=== PATIENT | female | born 1995 | race Caucasian/White ===

== ENCOUNTER 2016-08-21 04:43 | Emergency (ER) | payer MEDICAID ==
[2016-08-21 04:58] VITALS: BP 125/79
[2016-08-21] MEDS ORDERED: Ketorolac 60 MG/2 ML SDV IM ONE (05:15)
[2016-08-21] MEDS ORDERED: Acetaminophen/Codeine 300-30 MG Tab PO ONE (05:16)
--- NOTE | 2016-08-21 05:19 | EDM.PDOC ---
ED HPI GENERAL MEDICAL PROBLEM - General Chief Complaint: ENT Problem Stated Complaint: LT TOOTH PAIN Time Seen by Provider: 08/21/16 05:27 Source of Information: Reports: Patient History Limitations: Reports: No Limitations - History of Present Illness INITIAL COMMENTS - FREE TEXT/NARRATIVE: pt is having severe pain the left upper jaw. The most post tooth was very tender. She is also tender in left incisor area and she has alot of cavitiesv Onset: Gradual Duration: Day(s):, Getting Worse Location: Reports: Face Associated Symptoms: Reports: Other ( severe jaw pain) Treatments [employer]: Reports: Acetaminophen, NSAIDS Upper Left tooth Pain Score (Numeric/FACES): 0 - Related Data Allergies Allergy/AdvReac Type Severity Reaction Status Date / Time Penicillins Allergy Rash Verified 08/21/16 04:58 Home Meds: Home Meds NK [No Known Home Meds] 08/21/16 [History] Social & Family History - Tobacco Use Smoking Status *Q: Current Every Day Smoker Years of Tobacco use: 6 Packs/Tins Daily: 0.5 Second Hand Smoke Exposure: Yes - Caffeine Use Caffeine Use: Reports: Soda - Recreational Drug Use Recreational Drug Use: No ED ROS ENT - Review of Systems Review Of Systems: See Below Constitutional: Reports: No Symptoms HEENT: Reports: Dental Pain, Other ( the entire left jaw is painful) Respiratory: Reports: No Symptoms Cardiovascular: Reports: No Symptoms Endocrine: Reports: No Symptoms GI/Abdominal: Reports: No Symptoms : Reports: No Symptoms ED EXAM, ENT - Physical Exam Exam: See Below Text/Narrative:: pt arrived with pain in the left upper jaw. Exam Limited By: No Limitations General Appearance: Alert, Anxious, Moderate Distress Ears: Normal External Exam, Other (left drum is clear with no redness) Nose: Normal Inspection Mouth/Throat: Dental Pain, Dental Tenderness, Other ( no definite abcess is present. ) Head: Atraumatic Neck: Normal Inspection, Lymphadenopathy (R) Respiratory/Chest: No Respiratory Distress Course - Vital Signs Last Recorded V/S: Last Vital Signs Temp 36.5 C 08/21/16 04:55 Pulse 97 08/21/16 04:55 Resp 16 08/21/16 04:55 BP 125/79 08/21/16 04:55 Pulse Ox 97 08/21/16 04:55 - Orders/Labs/Meds Meds: Medications Discontinued Medications Generic Name Dose Route Start Last Admin Trade Name Freq PRN Reason Stop Dose Admin Acetaminophen/Codeine Phosphate 1 tab 08/21/16 05:16 Tylenol With Codeine No.3 300mg/30mg PO 08/21/16 05:17 ONETIME ONE Ketorolac Tromethamine 60 mg 08/21/16 05:15 Toradol IM 08/21/16 05:16 ONETIME ONE - Re-Assessments/Exams Free Text/Narrative Re-Assessment/Exam: 08/21/16 05:31 pt was given torodol 60mg im. She was also given a tylen 3 po. Departure - Departure Time of Disposition: 05:17 Disposition: Home, Self-Care 01 Condition: fair Clinical Impression: Infected tooth - Discharge Information Referrals: PCP,None [Primary Care Provider] - Forms: ED Department Discharge Care Plan Goals: keflex 500mg tid, motrin 600mg tid, tylenol 3 1 [id number] prn for pain , dental appt with [facility] Tuesday.
== END 2016-08-21 05:47 | disposition home or self-care (01) ==
LOC: JP.ED 04:43
DX: K04.7 Periapical abscess without sinus (principal); F17.210 Nicotine dependence, cigarettes, uncomplicated; Z88.0 Allergy status to penicillin
CPT/HCPCS: 96372; 99283; A9270; J1885

== ENCOUNTER 2021-11-24 17:09 | Emergency (ER) | payer SELFPAY ==
[2021-11-24 18:18] VITALS: BP 142/95; PULSE 93
[2021-11-24] MEDS ORDERED: Ketorolac 30 MG/ML SDV IM ONE (18:30)
== END 2021-11-24 19:03 | disposition home or self-care (01) ==
LOC: JP.ED 17:09
DX: Z48.814 Encounter for surgical aftercare following surgery on the teeth or oral cavity (principal); G35 Multiple sclerosis; Z88.0 Allergy status to penicillin
CPT/HCPCS: 96372; 99282; J1885